=== PATIENT | male | born 1985 | race Caucasian/White ===

== ENCOUNTER 2016-09-26 17:12 | Emergency (ER) | payer SELFPAY ==
[2016-09-26] MEDS ORDERED: Tetracaine HCl 0.5% Ophth Soln 2 ML Bottle ONE (17:30)
[2016-09-26] MEDS ORDERED: Gentamicin Ophth Ointment 0.3% 3.5 gm Tube ONE (17:30)
[2016-09-26] MEDS ORDERED: HYDROcodone/Acetaminophen 5/325 mg Tablet ONE (18:19)
== END 2016-09-26 18:35 | disposition home or self-care (01) ==
LOC: BURERS 17:12
DX: T15.01XA Foreign body in cornea, right eye, initial encounter (principal); H60.91 Unspecified otitis externa, right ear; F17.210 Nicotine dependence, cigarettes, uncomplicated
CPT/HCPCS: 65220

== ENCOUNTER 2020-03-23 11:49 | Emergency (ER) | payer SELFPAY ==
[2020-03-23] MEDS ORDERED: HYDROcodone/Acetaminophen 10/325 mg Tablet ONE (12:38)
[2020-03-23] MEDS ORDERED: cefTRIAXone\\ROCEPHIN 1 GM VIAL ONE (12:39)
== END 2020-03-23 12:59 | disposition home or self-care (01) ==
LOC: BURERS 11:49
DX: G89.18 Other acute postprocedural pain (principal)
CPT/HCPCS: 96372; 99283; J0696

== ENCOUNTER 2020-03-25 10:58 | Emergency (ER) | payer SELFPAY ==
[2020-03-25] MEDS ORDERED: Piperacillin/Tazobactam 4.5 GM VIAL ONE (11:36)
[2020-03-25] MEDS ORDERED: Sodium Chloride 0.9% 100 ML ONE (11:37)
[2020-03-25] MEDS ORDERED: Ondansetron PF 4 MG/2 ML Vial ONE (11:44)
[2020-03-25] MEDS ORDERED: Morphine 2 MG/ML VIAL ONE (11:44)
[2020-03-25 11:59] LABS: #Basophils 0.2 thou/uL (0.0-0.2); #Lymphocytes 1.4 thou/uL (1.20-3.40); #Monocytes 0.9 thou/uL (0.11-0.59); #Neutrophils 12.6 thou/uL (1.40-6.50); %Basophils 1.2 % (0.0-1.0); %Eosinophils 0.2 % (0.0-10.0); %Lymphocytes 9.1 % (21.0-51.0); %Monocytes 5.8 % (0.0-10.0); %Neutrophils 83.8 % (42.0-75.0); Hemoglobin 13.1 g/dL (14.0-18.0); Mean Corpuscular HGB CONC 32.5 g/dL (32.0-36.0); Mean Corpuscular Hemoglobin 28.6 pg (27.0-31.0); Mean Corpuscular Volume 88.1 fL (78.0-98.0); Mean Platelet Volume 5.4 fL (7.4-10.4); Platelet Count 388 thou/uL (130-400); RBC Distribution Width 11.3 % (11.5-14.5); Red Blood Cell (RBC) Count 4.57 mill/uL (4.70-6.10)
[2020-03-25 12:15] LABS: ALT (SGPT) 82 U/L (8-55); AST (SGOT) 45 U/L (5-34); Albumin 4.6 g/dL (3.5-5.0); Alkaline Phosphatase 196 U/L (40-110); Anion Gap 20 mmol/L (10-20); BUN (Urea Nitrogen) 15 mg/dL (8.9-20.6); Bilirubin, Total 0.9 mg/dL (0.2-1.2); Calc. Creatinine Clearance 0 mL/min (70-130); Carbon Dioxide 22 mmol/L (22-29); Chloride 98 mmol/L (98-107); Globulin 4.5 g/dL (2.4-3.5); Glucose 124 mg/dL (70-105); Potassium 3.6 mmol/L (3.5-5.1); Protein, Total 9.1 g/dL (6.0-8.3); Sodium 136 mmol/L (136-145)
--- NOTE | 2020-03-25 13:12 | CT ---
CT OF THE NECK SOFT TISSUES WITH CONTRAST: Date: 03/25/[address] of the neck was done for swelling in the submandibular region. Recent tooth extractions hav e been done. Today's exam shows a fluid collection in the submandibular region at about the region of the geniohyo id and mylohyoid muscles. It is located in the midline and is about 2.5 cm in diameter. An abscess is presumed. It does not have an obvious connection to the mandible, nor was there an obvious focal abs cess in the mandible itself. One does see empty sockets where teeth were recently extracted. As expec neeta, there is deep cervical adenopathy bilaterally. No abscessed nodes were appreciated. The parotid glands are somewhat generous in size, but symmetrical. Other incidental findings include some focal areas of mucosal thickening in each maxillary sinus. IMPRESSION: 2.5 cm submandibular fluid collection in the midline presumed to be an abscess. Findings discussed with Dr. Senior at 1228 hours on 03/25/2020. CODE CR. POS: HOME
[2020-03-25] MEDS ORDERED: Acetaminophen 500 MG TAB ONE (13:15)
[2020-03-25 13:56] LABS: SARS-CoV-2 NAA Rapid Test Not Detected (NotDetected)
[2020-03-25] MEDS ORDERED: Iopamidol 370 76% 100 ML VIAL ONE (14:04)
[2020-03-25] MEDS ORDERED: XYLOCAINE 2%-EPI 1:100,000 20 ML VIAL ONE (15:02)
[2020-03-25] MEDS ORDERED: Chlorhexidine Gluconate 15 ML UDCUP SSP ONE (15:02)
[2020-03-25] MEDS ORDERED: Sodium Chloride 0.9% 10 ML ONE (15:02)
[2020-03-25] MEDS ORDERED: Bacitracin Zinc Ointment 30 gm TUBE ONE (15:02)
[2020-03-25] MEDS ORDERED: Ophthalmic Irrigation Solution 15 ML ONE (15:02)
== END 2020-03-25 14:10 | disposition short-term general hospital (02) ==
LOC: BURERS 10:58
DX: K12.2 Cellulitis and abscess of mouth (principal)
CPT/HCPCS: 0240U; 36415; 70492; 80053; 83605; 85025; 87040; 96365; 96375; 96376; J2270; J2405; J2543; J3490; Q9967

== ENCOUNTER 2021-10-12 15:26 | Emergency (ER) | payer SELFPAY ==
[2021-10-12] MEDS ORDERED: cloNIDine 0.1 MG TAB ONE (16:03)
[2021-10-12] MEDS ORDERED: Ketorolac Tromethamine 60 MG/2 ML VIAL ONE (16:26)
[2021-10-12] MEDS ORDERED: Ondansetron PF 4 MG/2 ML Vial ONE (16:26)
[2021-10-12] MEDS ORDERED: Dicyclomine 20 MG/2 ML VIAL ONE (16:26)
[2021-10-12] MEDS ORDERED: cloNIDine 0.1mg/24 Hour PATCH TD SCH (16:45)
== END 2021-10-12 17:55 | disposition left against medical advice (07) ==
LOC: BURERS 15:26
DX: F11.13 Opioid abuse with withdrawal (principal); R10.84 Generalized abdominal pain; R11.2 Nausea with vomiting, unspecified
CPT/HCPCS: 96372; 99283; J1885; J2405

== ENCOUNTER 2021-10-13 15:26 | Emergency (ER) | payer SELFPAY ==
[2021-10-13] MEDS ORDERED: NS 0.9% w/ 20 MEQ KCL 1,000 ML BAG IV ONE (15:27)
[2021-10-13 16:48] LABS: #Basophils 0.1 thou/uL (0.0-0.2); #Lymphocytes 2.8 thou/uL (1.20-3.40); #Monocytes 0.7 thou/uL (0.11-0.59); #Neutrophils 10.7 thou/uL (1.40-6.50); %Basophils 0.6 % (0.0-1.0); %Eosinophils 0.1 % (0.0-10.0); %Lymphocytes 19.6 % (21.0-51.0); %Monocytes 5.2 % (0.0-10.0); %Neutrophils 74.6 % (42.0-75.0); Hemoglobin 16.8 g/dL (14.0-18.0); Mean Corpuscular HGB CONC 34.7 g/dL (32.0-36.0); Mean Corpuscular Hemoglobin 30.4 pg (27.0-31.0); Mean Corpuscular Volume 87.7 fL (78.0-98.0); Mean Platelet Volume 6.4 fL (7.4-10.4); Platelet Count 353 thou/uL (130-400); RBC Distribution Width 11.9 % (11.5-14.5); Red Blood Cell (RBC) Count 5.53 mill/uL (4.70-6.10); White Blood Cell (WBC) Count 14.3 thou/uL (4.8-10.8)
[2021-10-13] MEDS ORDERED: Ketorolac Tromethamine 30 MG/ML VIAL ONE (17:00)
[2021-10-13] MEDS ORDERED: diphenhydrAMINE 50 MG/ML VIAL ONE (17:00)
[2021-10-13] MEDS ORDERED: Metoclopramide HCl 10 MG/2 ML VIAL ONE (17:00)
[2021-10-13 17:09] LABS: ALT (SGPT) 18 U/L (8-55); AST (SGOT) 26 U/L (5-34); Albumin 5.3 g/dL (3.5-5.0); Alkaline Phosphatase 125 U/L (40-110); Anion Gap 20 mmol/L (10-20); BUN (Urea Nitrogen) 18 mg/dL (8.9-20.6); Bilirubin, Total 1.1 mg/dL (0.2-1.2); Calc. Creatinine Clearance 0 mL/min (70-130); Calcium 10.7 mg/dL (7.8-10.44); Carbon Dioxide 27 mmol/L (22-29); Chloride 96 mmol/L (98-107); Estimated GFR 64; Glucose 106 mg/dL (70-105); Lipase 27 U/L (8-78); Protein, Total 9.3 g/dL (6.0-8.3); Sodium 140 mmol/L (136-145)
[2021-10-13 17:12] LABS: Potassium 2.8 mmol/L (3.5-5.1)
== END 2021-10-13 19:30 | disposition home or self-care (01) ==
LOC: BURERS 15:26
DX: F11.23 Opioid dependence with withdrawal (principal); R11.2 Nausea with vomiting, unspecified
CPT/HCPCS: 80053; 83690; 85025; 96361; 96365; 96375; J1200; J1885; J2765; J3480